=== PATIENT | female | born 1975 | race Caucasian/White ===

== ENCOUNTER → 2020-06-25 | Outpatient (CLI) | payer OTHER ==
[~2020-06-25] MED LIST: GABA300C PO; MELO15TA24 PO; METH750T2 PO; TRAM50TA2 PO
[2020-06-25 13:49] LABS: MICROSCOPIC NOT IND
[2020-06-25 13:50] LABS: BASOPHILS % (AUTO) 0 % (0-1); EOSINOPHILS % (AUTO) 2 % (1-7); LYMPHOCYTES % (AUTO) 33 % (22-44); MEAN CORPUSCULAR HEMOGLOBIN 33.7 pg (27.0-34.8); MEAN CORPUSCULAR HGB CONC 35.1 g/dL (32.4-35.8); MEAN PLATELET VOLUME 8.8 fL (7.4-10.4); MONOCYTES % (AUTO) 6 % (2-9); NEUTROPHILS % (AUTO) 59 % (42-75); PLATELET COUNT 191 x10^3/uL (130-400); RED BLOOD COUNT 4.36 x10^6/uL (3.82-5.3); RED CELL DISTRIBUTION WIDTH 12.3 % (9.6-15.2)
[2020-06-25 13:58] LABS: MD NO
[2020-06-25 14:02] LABS: ALANINE AMINOTRANSFERASE 39 U/L (12-78); ALBUMIN 4.1 g/dL (3.4-5.0); ANION GAP 4 mmol/L (5-15); CALCIUM 9.2 mg/dL (8.5-10.1); CHLORIDE 109 mmol/L (98-107); CREATININE 0.93 mg/dL (0.55-1.02)
[2020-06-25 14:04] LABS: ALKALINE PHOSPHATASE 56 U/L (45-117); BILIRUBIN,TOTAL 0.4 mg/dL (0.2-1.0); TOTAL PROTEIN 7.8 g/dL (6.4-8.2)
[2020-06-25 14:08] LABS: INTERNATIONAL NORMALIZED RATIO 0.94 (0.93-1.1); PROTHROMBIN TIME 10.1 Seconds (9.6-11.5)
== END | disposition home or self-care (01) ==
LOC: STAR 11:59
PROVIDERS: ATTEND Neurological Surgery
DX: Z01.812 Encounter for preprocedural laboratory examination (principal); Z01.811 Encounter for preprocedural respiratory examination; Z20.822 Contact with and (suspected) exposure to COVID-19; R94.31 Abnormal electrocardiogram [ECG] [EKG]; R82.90 Unspecified abnormal findings in urine; R79.1 Abnormal coagulation profile; M54.5 Low back pain; M43.16 Spondylolisthesis, lumbar region; M54.17 Radiculopathy, lumbosacral region; M48.061 Spinal stenosis, lumbar region without neurogenic claudication
CPT/HCPCS: 71046; 80053; 81003; 85025; 85610; 85730; 87635; 93005

== ENCOUNTER 2020-07-01 11:22 | Inpatient (IN) | payer OTHER ==
[~2020-07-01] VITALS: Ht 165.1 cm; Wt 71.9 kg
[~2020-07-01 11:22] MED LIST changes: +FENTANYL PF 250 MCG/5ML ONE; +METH-640 PO; -METH750T2 PO; +MIDAZOLAM 1 MG/ML, 2ML ONE; +PROPOFOL 50 ML ONE
[2020-07-01] MEDS ORDERED: CHLORHEXIDINE 15 ML UDC ONE (11:48)
[2020-07-01] MEDS ORDERED: CHLORHEXIDINE 15 ML UDC MM ONE (12:00)
[2020-07-01] MEDS ORDERED: LACTATED RINGERS 1,000 ML IV SCH (12:00)
[2020-07-01] MEDS ORDERED: BACITRACIN 50,000 UNIT ONE (12:05)
[2020-07-01] MEDS ORDERED: BUPIVACAINE/PF 0.5% ONE (12:05)
[2020-07-01] MEDS ORDERED: EPINEPHRINE 1 MG/ML, 1ML ONE (12:05)
[2020-07-01] MEDS ORDERED: MAGNESIUM SULFATE 1 GM/2 ML ONE (12:19)
[2020-07-01 12:27] LABS: HCG UR SG 1.022 (1.003-1.030)
[2020-07-01] MEDS ORDERED: GABAPENTIN 300 MG CAPSULE ONE (12:31)
[2020-07-01] MEDS ORDERED: ACETAMINOPHEN 500 MG TABLET ONE (12:31)
[2020-07-01] MEDS ORDERED: PROPOFOL 50 ML ONE ×2 (12:35→13:35)
[2020-07-01] MEDS ORDERED: SUCCINYLCHOLINE 20 MG/ML, 10ML ONE (12:47)
[2020-07-01] MEDS ORDERED: DEXAMETHASONE 4 MG/ML, 1ML ONE (12:47)
[2020-07-01] MEDS ORDERED: ROCURONIUM 10 MG/ML,10ML ONE (12:47)
[2020-07-01] MEDS ORDERED: SUGAMMADEX 200 MG/2 ML IVPush ONE (12:47)
[2020-07-01] MEDS ORDERED: KETAMINE 10 MG/ML, 20ML ONE (12:47)
[2020-07-01] MEDS ORDERED: CEFAZOLIN 1,000 MG ONE (12:47)
[2020-07-01] MEDS ORDERED: METOCLOPRAMIDE 5 MG/ML, 2ML ONE (12:47)
[2020-07-01 13:03] LABS: AMPHETAMINE SCREEN, URINE Negative (Negative); BARBITURATE SCREEN, URINE Negative (Negative); BENZODIAZEPINE SCREEN, URINE Negative (Negative); CANNABINOID SCREEN, URINE Positive (Negative); COCAINE SCREEN, URINE Negative (Negative); METHADONE SCREEN, URINE Negative (Negative); OPIATE SCREEN, URINE Negative (Negative)
[2020-07-01] MEDS ORDERED: DIPHENHYDRAMINE 50 MG/ML, 1ML IVPush PRN (13:30)
[2020-07-01] MEDS ORDERED: KETOROLAC 30 MG/1 ML IVPush PRN (13:30)
[2020-07-01] MEDS ORDERED: METHOCARBAMOL 1,000 MG in DEXTROSE 5% 100 ML IV PRN (13:30)
[2020-07-01] MEDS ORDERED: hydrALAzine 20 MG/ML, 1ML IV PRN (13:30)
[2020-07-01] MEDS ORDERED: LABETALOL 5MG/ML, 20ML IV PRN (13:30)
[2020-07-01] MEDS ORDERED: PROMETHAZINE 25 MG/ML, 1ML IVPush PRN (13:30)
[2020-07-01] MEDS ORDERED: ONDANSETRON 2MG/ML, 2ML IVPush PRN (13:30)
[2020-07-01] MEDS ORDERED: MAGNESIUM HYDROXIDE 8%, 30ML UDC PO PRN (14:00)
[2020-07-01] MEDS ORDERED: PHARMACY MAY ADJ FOR RENAL FX MC PRN (14:00)
[2020-07-01] MEDS ORDERED: D5%-0.9% NACL+KCL 20MEQ 1,000 ML IV SCH (14:00)
[2020-07-01] MEDS ORDERED: SENNA/DOCUSATE TABLET PO PRN (14:00)
[2020-07-01] MEDS ORDERED: PROMETHAZINE 25 MG/ML, 1ML IM PRN (14:00)
[2020-07-01] MEDS ORDERED: METHOCARBAMOL 1,000 MG in DEXTROSE 5% 100 ML IV ONE (14:00)
[2020-07-01] MEDS ORDERED: BISACODYL 10 MG SUPP PR PRN (14:00)
[2020-07-01] MEDS ORDERED: FENTANYL PF 100 MCG/2ML ONE ×3 (14:14→15:32)
[2020-07-01] MEDS: FENTANYL PF 100 MCG/2ML IV PRN ×6 (14:15→15:37)
[2020-07-01] MEDS ORDERED: DIAZEPAM 5 MG/ML, 2ML ONE (14:20)
[2020-07-01] MEDS: DIAZEPAM 5 MG/ML, 2ML IVPush PRN ×2 (14:21→14:31)
[2020-07-01] MEDS ORDERED: PROMETHAZINE 25 MG/ML, 1ML ONE (14:35)
[2020-07-01] MEDS ORDERED: KETOROLAC 30 MG/1 ML ONE (14:47)
[2020-07-01] MEDS ORDERED: METHOCARBAMOL 1000MG/10 ML IV SCH (16:00)
[2020-07-01] MEDS ORDERED: METHOCARBAMOL 750 MG TABLET PO SCH (16:00)
[2020-07-01] MEDS ORDERED: DIAZEPAM 5 MG/ML, 10ML VIAL IV PRN (16:30)
[2020-07-01] MEDS: GABAPENTIN 300 MG CAPSULE PO SCH ×2 (16:51→20:54)
[2020-07-01] MEDS: FENTANYL PF 100 MCG/2ML IVPush PRN ×4 (16:52→23:20)
[2020-07-01 19:27] VITALS: BP 111/67
[2020-07-01] MEDS: SODIUM CHLORIDE FLUSH 10ML SYR IVF SCH (20:48)
[2020-07-01] MEDS: DIPHENHYDRAMINE 50 MG/ML, 1ML IVPush PRN (20:48)
[2020-07-01] MEDS: CEFAZOLIN PMX 1GM/50ML 50 ML IVPB SCH (20:48)
[2020-07-01] MEDS: METHOCARBAMOL 1,000 MG in DEXTROSE 5% 100 ML IV SCH (22:01)
[2020-07-01] MEDS: D5%-0.9% NACL+KCL 20MEQ 1,000 ML IV SCH (22:31)
[2020-07-02 00:12] VITALS: BP 112/73
[2020-07-02] MEDS: FENTANYL PF 100 MCG/2ML IVPush PRN ×7 (01:36→22:07)
[2020-07-02] MEDS: DIPHENHYDRAMINE 50 MG/ML, 1ML IVPush PRN ×3 (03:44→22:07)
[2020-07-02 04:03] VITALS: BP 105/72
[2020-07-02] MEDS: CEFAZOLIN PMX 1GM/50ML 50 ML IVPB SCH ×2 (04:53→17:27)
[2020-07-02] MEDS ORDERED: VANCOMYCIN 1,000 MG ONE (06:21)
[2020-07-02] MEDS ORDERED: BUPIVACAINE/PF 0.5% ONE (06:21)
[2020-07-02] MEDS ORDERED: BACITRACIN 50,000 UNIT ONE (06:21)
[2020-07-02] MEDS ORDERED: EPINEPHRINE 1 MG/ML, 1ML ONE (06:21)
[2020-07-02 07:28] VITALS: BP 108/66
[2020-07-02] MEDS: D5%-0.9% NACL+KCL 20MEQ 1,000 ML IV SCH ×2 (07:43→13:28)
[2020-07-02] MEDS: SODIUM CHLORIDE FLUSH 10ML SYR IVF SCH ×4 (07:43→21:00)
[2020-07-02] MEDS ORDERED: FENTANYL PF 250 MCG/5ML ONE ×2 (07:46→09:34)
[2020-07-02] MEDS ORDERED: MIDAZOLAM 1 MG/ML, 2ML ONE (07:46)
[2020-07-02] MEDS ORDERED: CHLORHEXIDINE 15 ML UDC ONE (07:47)
[2020-07-02] MEDS ORDERED: DEXAMETHASONE 4 MG/ML, 1ML ONE (07:49)
[2020-07-02] MEDS ORDERED: ONDANSETRON 2MG/ML, 2ML ONE (07:49)
[2020-07-02] MEDS ORDERED: PROPOFOL 10 MG/ML, 20ML ONE (07:49)
[2020-07-02] MEDS ORDERED: CEFAZOLIN 1,000 MG ONE (07:49)
[2020-07-02] MEDS ORDERED: ROCURONIUM 10MG/ML,5ML ONE (07:49)
[2020-07-02] MEDS ORDERED: GLYCOPYRROLATE 0.2MG/1ML, 5ML ONE (07:49)
[2020-07-02] MEDS ORDERED: NEOSTIGMINE 1 MG/ML, 10ML ONE (07:49)
[2020-07-02] MEDS ORDERED: CHLORHEXIDINE 15 ML UDC MM STA (07:52)
[2020-07-02] MEDS ORDERED: KETAMINE 10 MG/ML, 20ML ONE (08:55)
[2020-07-02] MEDS: METHOCARBAMOL 1,000 MG in DEXTROSE 5% 100 ML IV SCH ×3 (09:00→22:15)
[2020-07-02] MEDS: GABAPENTIN 300 MG CAPSULE PO SCH ×3 (09:00→22:07)
[2020-07-02] MEDS ORDERED: hydrALAzine 20 MG/ML, 1ML IV PRN (09:00)
[2020-07-02] MEDS ORDERED: ONDANSETRON 2MG/ML, 2ML IVPush PRN ×2 (09:00→11:00)
[2020-07-02] MEDS ORDERED: LABETALOL 5MG/ML, 20ML IV PRN (09:00)
[2020-07-02] MEDS ORDERED: ACETAMINOPHEN 325 MG TABLET PO PRN (09:00)
[2020-07-02] MEDS ORDERED: BACITRACIN 50,000 UNIT IRRIG ONE (09:49)
[2020-07-02] MEDS ORDERED: BUPIVACAINE/PF 0.5% INFIL ONE (09:49)
[2020-07-02] MEDS ORDERED: EPINEPHRINE 1 MG/ML, 1ML INFIL ONE (09:49)
[2020-07-02] MEDS ORDERED: FENTANYL PF 100 MCG/2ML ONE ×2 (10:15→10:41)
[2020-07-02] MEDS ORDERED: DIPHENHYDRAMINE 50 MG/ML, 1ML IVPush PRN (11:00)
[2020-07-02] MEDS ORDERED: D5%-0.9% NACL+KCL 20MEQ 1,000 ML IV SCH (11:00)
[2020-07-02] MEDS ORDERED: PROMETHAZINE 25 MG/ML, 1ML IM PRN (11:00)
[2020-07-02] MEDS ORDERED: PHARMACY MAY ADJ FOR RENAL FX MC PRN (11:00)
[2020-07-02] MEDS ORDERED: SENNA/DOCUSATE TABLET PO PRN (11:00)
[2020-07-02] MEDS ORDERED: BISACODYL 10 MG SUPP PR PRN (11:00)
[2020-07-02] MEDS ORDERED: MAGNESIUM HYDROXIDE 8%, 30ML UDC PO PRN (11:00)
[2020-07-02] MEDS: FENTANYL PF 100 MCG/2ML IV PRN ×2 (11:15→11:41)
[2020-07-02] MEDS ORDERED: DIPHENHYDRAMINE 50 MG/ML, 1ML ONE (11:58)
[2020-07-02] MEDS ORDERED: METHOCARBAMOL 1,000 MG in DEXTROSE 5% 100 ML IV ONE (12:00)
[2020-07-02 12:55] VITALS: BP 115/63
[2020-07-02] MEDS ORDERED: METHOCARBAMOL 1000MG/10 ML IV SCH (16:00)
[2020-07-02] MEDS: DIAZEPAM 5 MG/ML, 2ML IVPush PRN (16:25)
[2020-07-02 18:56] VITALS: BP 110/64
[2020-07-03 00:54] VITALS: BP 111/69
[2020-07-03] MEDS: DIAZEPAM 5 MG/ML, 2ML IVPush PRN (01:07)
[2020-07-03] MEDS: CEFAZOLIN PMX 1GM/50ML 50 ML IVPB SCH (01:30)
[2020-07-03] MEDS: ONDANSETRON 2MG/ML, 2ML IVPush PRN ×3 (02:46→20:22)
[2020-07-03] MEDS: FENTANYL PF 100 MCG/2ML IVPush PRN ×5 (02:52→20:25)
[2020-07-03] MEDS: D5%-0.9% NACL+KCL 20MEQ 1,000 ML IV SCH ×3 (03:58→23:02)
[2020-07-03 04:09] VITALS: BP 110/71
[2020-07-03] MEDS: ENOXAPARIN 40 MG/0.4 ML SQ SCH (05:12)
[2020-07-03] MEDS: GABAPENTIN 300 MG CAPSULE PO SCH ×3 (08:14→20:22)
[2020-07-03] MEDS ORDERED: KETOROLAC 30 MG/1 ML ONE (08:33)
[2020-07-03] MEDS: METHOCARBAMOL 1,000 MG in DEXTROSE 5% 100 ML IV SCH ×3 (08:35→22:27)
[2020-07-03] MEDS: KETOROLAC 30 MG/1 ML IM SCH ×3 (08:35→20:21)
[2020-07-03] MEDS: SODIUM CHLORIDE FLUSH 10ML SYR IVF SCH ×4 (08:38→23:02)
[2020-07-03 09:00] VITALS: BP 107/73
[2020-07-03 09:52] LABS: BASOPHILS % (AUTO) 0 % (0-1); EOSINOPHILS % (AUTO) 0 % (1-7); LYMPHOCYTES % (AUTO) 21 % (22-44); MEAN CORPUSCULAR HEMOGLOBIN 33.8 pg (27.0-34.8); MEAN CORPUSCULAR HGB CONC 34.9 g/dL (32.4-35.8); MEAN PLATELET VOLUME 8.9 fL (7.4-10.4); MONOCYTES % (AUTO) 6 % (2-9); NEUTROPHILS % (AUTO) 73 % (42-75); PLATELET COUNT 125 x10^3/uL (130-400); RED BLOOD COUNT 3.23 x10^6/uL (3.82-5.3)
[2020-07-03 09:54] LABS: ANION GAP 6 mmol/L (5-15); CALCIUM 7.9 mg/dL (8.5-10.1); CHLORIDE 112 mmol/L (98-107); CREATININE 0.77 mg/dL (0.55-1.02)
[2020-07-03 10:04] LABS: MD NO
[2020-07-03 15:45] VITALS: BP 105/67
[2020-07-03 19:14] VITALS: BP 127/77
[2020-07-03] MEDS: DIPHENHYDRAMINE 50 MG/ML, 1ML IVPush PRN (23:11)
[2020-07-04 01:47] VITALS: BP 100/63
[2020-07-04] MEDS: FENTANYL PF 100 MCG/2ML IVPush PRN ×4 (02:42→20:26)
[2020-07-04] MEDS: ENOXAPARIN 40 MG/0.4 ML SQ SCH (06:00)
[2020-07-04] MEDS ORDERED: BACITRACIN 50,000 UNIT ONE (06:10)
[2020-07-04] MEDS ORDERED: EPINEPHRINE 1 MG/ML, 1ML ONE (06:10)
[2020-07-04] MEDS ORDERED: VANCOMYCIN 1,000 MG ONE (06:10)
[2020-07-04] MEDS ORDERED: BUPIVACAINE/PF 0.5% ONE ×2 (06:10→13:38)
[2020-07-04 07:04] VITALS: BP 125/82
[2020-07-04] MEDS: GABAPENTIN 300 MG CAPSULE PO SCH ×3 (08:10→20:27)
[2020-07-04] MEDS: ONDANSETRON 2MG/ML, 2ML IVPush PRN ×2 (08:10→20:37)
[2020-07-04] MEDS: SODIUM CHLORIDE FLUSH 10ML SYR IVF SCH ×3 (08:10→22:41)
[2020-07-04] MEDS: METHOCARBAMOL 1,000 MG in DEXTROSE 5% 100 ML IV SCH (08:39)
[2020-07-04] MEDS ORDERED: MIDAZOLAM 1 MG/ML, 2ML ONE ×2 (10:41→14:12)
[2020-07-04] MEDS ORDERED: FENTANYL PF 250 MCG/5ML ONE (10:41)
[2020-07-04] MEDS ORDERED: PROPOFOL 50 ML ONE (10:42)
[2020-07-04] MEDS ORDERED: LIDOCAINE-MPF 2% ,5ML ONE ×2 (10:44)
[2020-07-04] MEDS ORDERED: CHLORHEXIDINE 15 ML UDC ONE (11:05)
[2020-07-04] MEDS ORDERED: CHLORHEXIDINE 15 ML UDC MM ONE (11:30)
[2020-07-04] MEDS ORDERED: CEFAZOLIN 1,000 MG ONE (11:44)
[2020-07-04] MEDS ORDERED: KETAMINE 10 MG/ML, 20ML ONE (11:44)
[2020-07-04] MEDS ORDERED: SUGAMMADEX 200 MG/2 ML IVPush ONE (11:44)
[2020-07-04] MEDS ORDERED: DEXAMETHASONE 4 MG/ML, 1ML ONE (11:44)
[2020-07-04] MEDS ORDERED: ROCURONIUM 10 MG/ML,10ML ONE (11:44)
[2020-07-04] MEDS ORDERED: ONDANSETRON 2MG/ML, 2ML ONE (11:44)
[2020-07-04] MEDS ORDERED: LORazepam 2 MG/ML, 1ML IVPush PRN (12:30)
[2020-07-04] MEDS ORDERED: LABETALOL 5MG/ML, 20ML IV PRN (12:30)
[2020-07-04] MEDS ORDERED: METHOCARBAMOL 1,000 MG in DEXTROSE 5% 100 ML IV PRN (12:30)
[2020-07-04] MEDS ORDERED: ALBUTEROL SULFATE 2.5 MG/3 ML NPPB PRN (12:30)
[2020-07-04] MEDS ORDERED: PROMETHAZINE 25 MG/ML, 1ML IVPush PRN (12:30)
[2020-07-04] MEDS ORDERED: ACETAMINOPHEN 325 MG TABLET PO PRN (12:30)
[2020-07-04] MEDS ORDERED: hydrALAzine 20 MG/ML, 1ML IV PRN (12:30)
[2020-07-04] MEDS ORDERED: VANCOMYCIN 1,000 MG IM ONE (13:42)
[2020-07-04] MEDS ORDERED: EPINEPHRINE 1 MG/ML, 1ML INFIL ONE (13:43)
[2020-07-04] MEDS ORDERED: PROMETHAZINE 25 MG/ML, 1ML ONE (14:26)
[2020-07-04] MEDS ORDERED: FENTANYL PF 100 MCG/2ML ONE (14:26)
[2020-07-04] MEDS ORDERED: SENNA/DOCUSATE TABLET PO PRN (14:30)
[2020-07-04] MEDS ORDERED: PHARMACY MAY ADJ FOR RENAL FX MC PRN (14:30)
[2020-07-04] MEDS ORDERED: PROMETHAZINE 25 MG/ML, 1ML IM PRN (14:30)
[2020-07-04] MEDS ORDERED: BISACODYL 10 MG SUPP PR PRN (14:30)
[2020-07-04] MEDS: KETOROLAC 30 MG/1 ML IVPush SCH ×2 (14:30→22:39)
[2020-07-04] MEDS ORDERED: MAGNESIUM HYDROXIDE 8%, 30ML UDC PO PRN (14:30)
[2020-07-04] MEDS ORDERED: MIDAZOLAM 1 MG/ML, 5ML IVPush ONE (14:32)
[2020-07-04] MEDS: FENTANYL PF 100 MCG/2ML IV PRN ×2 (14:45→14:55)
[2020-07-04] MEDS: METHOCARBAMOL 1,000 MG in DEXTROSE 5% 100 ML IV PRN ×2 (15:00→23:47)
[2020-07-04] MEDS ORDERED: DIAZEPAM 5 MG/ML, 2ML ONE (15:23)
[2020-07-04] MEDS ORDERED: DIAZEPAM 5 MG/ML, 2ML IVPush PRN (16:00)
[2020-07-04] MEDS: D5%-0.9% NACL+KCL 20MEQ 1,000 ML IV SCH (16:25)
[2020-07-04] MEDS: CEFAZOLIN PMX 1GM/50ML 50 ML IVPB SCH (20:26)
[2020-07-04] MEDS: FAMOTIDINE 20 MG TABLET PO SCH (20:27)
[2020-07-04] MEDS: DIPHENHYDRAMINE 50 MG/ML, 1ML IVPush PRN (20:32)
[2020-07-04 21:07] VITALS: BP 121/71
[2020-07-05 00:10] VITALS: BP 145/93
[2020-07-05] MEDS: D5%-0.9% NACL+KCL 20MEQ 1,000 ML IV SCH ×3 (01:00→21:00)
[2020-07-05] MEDS: CEFAZOLIN PMX 1GM/50ML 50 ML IVPB SCH (03:50)
[2020-07-05] MEDS: FENTANYL PF 100 MCG/2ML IVPush PRN ×2 (03:50→21:36)
[2020-07-05] MEDS: DIPHENHYDRAMINE 50 MG/ML, 1ML IVPush PRN (04:12)
[2020-07-05 04:30] VITALS: BP 121/73
[2020-07-05 05:58] LABS: BASOPHILS % (AUTO) 0 % (0-1); EOSINOPHILS % (AUTO) 0 % (1-7); LYMPHOCYTES % (AUTO) 22 % (22-44); MEAN CORPUSCULAR HEMOGLOBIN 33.7 pg (27.0-34.8); MEAN CORPUSCULAR HGB CONC 35.1 g/dL (32.4-35.8); MEAN PLATELET VOLUME 9.3 fL (7.4-10.4); MONOCYTES % (AUTO) 9 % (2-9); NEUTROPHILS % (AUTO) 69 % (42-75); PLATELET COUNT 129 x10^3/uL (130-400); RED BLOOD COUNT 3.02 x10^6/uL (3.82-5.3); RED CELL DISTRIBUTION WIDTH 11.9 % (9.6-15.2)
[2020-07-05 06:02] LABS: MD NO
[2020-07-05 06:11] LABS: CHLORIDE 114 mmol/L (98-107)
[2020-07-05 06:17] LABS: ALBUMIN 2.9 g/dL (3.4-5.0); ANION GAP 8 mmol/L (5-15); CALCIUM 8.1 mg/dL (8.5-10.1)
[2020-07-05] MEDS: KETOROLAC 30 MG/1 ML IVPush SCH (06:25)
[2020-07-05] MEDS: ENOXAPARIN 40 MG/0.4 ML SQ SCH (06:25)
[2020-07-05 07:21] VITALS: BP 123/77
[2020-07-05] MEDS: SODIUM CHLORIDE FLUSH 10ML SYR IVF SCH ×2 (08:27→21:32)
[2020-07-05] MEDS: GABAPENTIN 300 MG CAPSULE PO SCH ×3 (08:27→21:29)
[2020-07-05] MEDS: FAMOTIDINE 20 MG TABLET PO SCH ×2 (08:27→21:29)
[2020-07-05] MEDS: FENTANYL PF 100 MCG/2ML IV PRN ×3 (10:56→21:29)
[2020-07-05 14:33] VITALS: BP 101/59
[2020-07-05 20:31] VITALS: BP 105/67
[2020-07-05] MEDS: ONDANSETRON 2MG/ML, 2ML IVPush PRN (21:29)
[2020-07-05] MEDS: METHOCARBAMOL 1,000 MG in DEXTROSE 5% 100 ML IV PRN (22:24)
[2020-07-06 00:54] VITALS: BP 122/76
[2020-07-06] MEDS: FENTANYL PF 100 MCG/2ML IVPush PRN ×4 (01:15→10:51)
[2020-07-06 05:21] LABS: BASOPHILS % (AUTO) 1 % (0-1); EOSINOPHILS % (AUTO) 1 % (1-7); LYMPHOCYTES % (AUTO) 28 % (22-44); MEAN CORPUSCULAR HEMOGLOBIN 34.1 pg (27.0-34.8); MEAN CORPUSCULAR HGB CONC 35.9 g/dL (32.4-35.8); MEAN PLATELET VOLUME 9.3 fL (7.4-10.4); MONOCYTES % (AUTO) 7 % (2-9); NEUTROPHILS % (AUTO) 63 % (42-75); PLATELET COUNT 147 x10^3/uL (130-400); RED BLOOD COUNT 2.95 x10^6/uL (3.82-5.3); RED CELL DISTRIBUTION WIDTH 12.3 % (9.6-15.2)
[2020-07-06] MEDS: ENOXAPARIN 40 MG/0.4 ML SQ SCH (05:23)
[2020-07-06 05:24] LABS: MD NO
[2020-07-06] MEDS: METHOCARBAMOL 1,000 MG in DEXTROSE 5% 100 ML IV PRN (05:39)
[2020-07-06] MEDS: D5%-0.9% NACL+KCL 20MEQ 1,000 ML IV SCH (06:42)
[2020-07-06 07:30] VITALS: BP 123/76
[2020-07-06] MEDS: GABAPENTIN 300 MG CAPSULE PO SCH (08:33)
[2020-07-06] MEDS: FAMOTIDINE 20 MG TABLET PO SCH (08:33)
[2020-07-06] MEDS: SODIUM CHLORIDE FLUSH 10ML SYR IVF SCH (08:34)
[2020-07-06] MEDS ORDERED: TRAM50TA2 PO (09:46)
[2020-07-06] MEDS ORDERED: METH-640 PO (09:46)
[2020-07-06] MEDS ORDERED: METHOCARBAMOL 750 MG TABLET PO PRN (10:00)
== END 2020-07-06 11:25 | disposition home or self-care (01) | DRG 455 ==
LOC: ORIP 11:22 → 4NE 16:13 → DCLOUNGE 07-06 11:13
PROVIDERS: ADMIT Neurological Surgery; ATTEND Neurological Surgery
PROC: 0SB40ZZ Excision of Lumbosacral Disc, Open Approach (ICD-10-PCS; 2020-07-01)
PROC: 4A11X4G Monitoring of Peripheral Nervous Electrical Activity, Intraoperative, External Approach (ICD-10-PCS; 2020-07-01)
PROC: 0SG30A0 Fusion of Lumbosacral Joint with Interbody Fusion Device, Anterior Approach, Anterior Column, Open Approach (ICD-10-PCS; principal; 2020-07-01 13:00)
PROC: 0SG00A0 Fusion of Lumbar Vertebral Joint with Interbody Fusion Device, Anterior Approach, Anterior Column, Open Approach (ICD-10-PCS; 2020-07-02)
PROC: 0SB20ZZ Excision of Lumbar Vertebral Disc, Open Approach (ICD-10-PCS; 2020-07-02)
PROC: 4A11X4G Monitoring of Peripheral Nervous Electrical Activity, Intraoperative, External Approach (ICD-10-PCS; 2020-07-02)
PROC: 0SG0071 Fusion of Lumbar Vertebral Joint with Autologous Tissue Substitute, Posterior Approach, Posterior Column, Open Approach (ICD-10-PCS; 2020-07-04)
PROC: 0SG3071 Fusion of Lumbosacral Joint with Autologous Tissue Substitute, Posterior Approach, Posterior Column, Open Approach (ICD-10-PCS; 2020-07-04)
PROC: 01NB0ZZ Release Lumbar Nerve, Open Approach (ICD-10-PCS; 2020-07-04)
PROC: 01NR0ZZ Release Sacral Nerve, Open Approach (ICD-10-PCS; 2020-07-04)
PROC: 4A11X4G Monitoring of Peripheral Nervous Electrical Activity, Intraoperative, External Approach (ICD-10-PCS; 2020-07-04)
DX: M51.17 Intervertebral disc disorders with radiculopathy, lumbosacral region (principal); M47.26 Other spondylosis with radiculopathy, lumbar region; M43.16 Spondylolisthesis, lumbar region; R26.9 Unspecified abnormalities of gait and mobility; R20.3 Hyperesthesia; M48.07 Spinal stenosis, lumbosacral region; F12.10 Cannabis abuse, uncomplicated; M51.37 Other intervertebral disc degeneration, lumbosacral region; M53.2X6 Spinal instabilities, lumbar region; Z87.891 Personal history of nicotine dependence; Z88.0 Allergy status to penicillin; Z88.5 Allergy status to narcotic agent; Z79.899 Other long term (current) drug therapy
CPT/HCPCS: 36415; 72100; 74018; J3490; S0020; 72131; 80048; 80307; 81025; 82040; 84702; 85025; 95938; 95941; C1713; C1776; G0378; J0171; J0690; J1100; J1650; J1885; J2250; J2405; J2550; J2704; J2710; J3010; J3360; J3370; J3475; C1763; J0330; J1200; J2765; J2800; J3480; J7120